=== PATIENT | male | born 1950 | race Caucasian/White ===

== ENCOUNTER → 2017-09-28 | Outpatient (CLI) | payer MEDICARE, BC ==
--- NOTE | 2017-09-28 11:33 | Diagnostic Imaging Report ---
PROCEDURE:C-SPINE COMPLETE COMPARISON:None. INDICATIONS:CERVICAL SPINE PAIN FINDINGS: 5 views of the cervical spine (AP, lateral, odontoid view, and bilateral obliques). The lateral view is visualized from the skull base to the bottom of C7. There are no fractures, lytic or blastic lesions. Multilevel facet arthrosis affects the lower cervical spine, particularly at C5-C6 and C6-C7. There is minimal anterolisthesis of C6 and minimal retrolisthesis of C5. Severe disc space narrowing is seen at C5-C6. Mild disc space narrowing at C4-C5 and C6-C7. The C1/C2-odontoid interval is narrowed. The pre-vertebral soft tissues are normal. Oblique views demonstrate potential bilateral neural foraminal narrowing at C5-C6. CONCLUSION: Multilevel degenerative changes of the cervical spine as above, particularly at C5-C6 Dictated by: Zeferino Baptiste M.D. on 09/28/2017 at 11:34 Electronically approved by: Zeferino Baptiste M.D. on 09/28/2017 at 11:34
== END ==
LOC: RAD 10:15
PROVIDERS: ATTEND Family Medicine
DX: M54.2 Cervicalgia (principal)
CPT/HCPCS: 72050

== ENCOUNTER → 2017-10-13 | Outpatient (CLI) | payer MEDICARE, BC ==
--- NOTE | 2017-10-14 00:54 | Diagnostic Imaging Report ---
History: Left shoulder pain Comparison studies: None Technique: Sagittal T1, T2 and IR, axial T2 and axial gradient echo Intravenous contrast: None Findings: Airway: Patent. Alignment: Normal lordosis. No scoliosis. Cervicomedullary junction: No abnormalities. Patent foramen magnum. Soft tissues: No T2 hyperintense inflammatory changes. Spinal cord: Normal in size and signal from the foramen magnum through T1. Vertebrae: Normal in height and signal intensity. No fractures, infection or neoplasm. Degenerative changes: C2-C3: Mild left facet arthrosis. Otherwise, no abnormalities. C3-C4: No abnormalities. C4-C5: Mildly degenerated disc. Mild left foraminal stenosis due to uncoarthrosis. Patent spinal canal and right foramen. No disc herniation. C5-C6: Moderately degenerated disc. Moderate bilateral foraminal stenosis is due to uncoarthrosis. Mild spinal canal stenosis is due to a disc osteophyte complex. No disc herniation. C6-C7: Mildly degenerated disc. Patent spinal canal and foramina. No disc herniation. C7-T1: No abnormalities. IMPRESSION: 1. Mildly degenerated disc at C4-5, moderate at C5-6, mild at C6-7. 2. Mild spinal canal stenosis at C5-6 due to a disc osteophyte complex. 3. Foraminal stenosis is mild left at C4-5 but moderate bilaterally at C5-6 due to uncoarthrosis. 4. No disc herniations. Signed by: Dr. Francisco Mccollum M.D. on 10/14/2017 12:51 AM
== END ==
LOC: MRI 09:35
PROVIDERS: ATTEND Family Medicine
DX: M50.321 Other cervical disc degeneration at C4-C5 level (principal); M50.323 Other cervical disc degeneration at C6-C7 level
CPT/HCPCS: 72141